=== PATIENT | female | born 1970 | race Caucasian/White ===

== ENCOUNTER 2019-01-30 00:42 | Emergency (ER) | payer OTHER ==
[~2019-01-30] VITALS: Ht 167.6 cm; Wt 80.2 kg
--- NOTE | 2019-01-30 00:44 | ED.ADGEN ---
Adult General Chief Complaint Chief Complaint ".. I was cleaning the barn yesterday.... I have horses.. , Bibi and Marco.. but I stuck my finger on dirty wire.. .. and I can't remember my last tetanus..." HPI HPI Patient is a 48 year old female who presents with above hx and complaints puncture wound to Rt. index finger. Patient states injury occurred when she was cleaning out the feed bowl for her horse. Bowl is made out of recycle tire. Patient is not remember her last tetanus. No recent travel. No specific ill time contacts. No history immunosuppression. No obvious significant injury to that finger currently. Has good range of motion. Distal neurovascular intact. Patient is right-hand dominant. Finger was cleaned after the injury. She normally follows at [place]. Review of Systems Review of Systems Constitutional: Denies fever or chills [] Eyes: Denies change in visual acuity, redness, or eye pain [] HENT: Denies nasal congestion or sore throat [] Respiratory: Denies cough or shortness of breath [] Cardiovascular: No additional information not addressed in HPI [] GI: Denies abdominal pain, nausea, vomiting, bloody stools or diarrhea [] : Denies dysuria or hematuria [] Musculoskeletal: Denies back pain or joint pain [] Integument: Denies rash or skin lesions []complains of puncture wound to right index finger Neurologic: Denies headache, focal weakness or sensory changes [] Endocrine: Denies polyuria or polydipsia [] All other systems were reviewed and found to be within normal limits, except as documented in this note. Family History Family History Noncontributory Current Medications Current Medications Current Medications Medications (Trade) Dose Ordered Sig/Favian Start Time Stop Time Status Last Admin Dose Admin Diphtheria/ Tetanus/Acell Pertussis (Boostrix) 0.5 ml ONCE ONCE 01/30/19 01:30 01/30/19 01:31 DC 01/30/19 01:18 0.5 ML Tetanus/ Diphtheria Toxoids Adsorbed (Tenivac Vial) 0.5 ml ONCE ONCE 01/30/19 01:00 01/30/19 01:10 DC Allergies Allergies Allergies Coded Allergies Type Severity Reaction Last Updated Verified Sulfa (Sulfonamide Antibiotics) Adverse Reaction Intermediate 01/30/19 Yes Physical Exam Physical Exam Constitutional: Well developed, well nourished, no acute distress, non-toxic appearance. [] HENT: Normocephalic, atraumatic, bilateral external ears normal, oropharynx moist, no oral exudates, nose normal. [] Eyes: PERRLA, EOMI, conjunctiva normal, no discharge. [] Neck: Normal range of motion, no tenderness, supple, no stridor. [] Cardiovascular:Heart rate regular rhythm, no murmur [] Lungs & Thorax: Bilateral breath sounds clear to auscultation [] Abdomen: Bowel sounds normal, soft, no tenderness, no masses, no pulsatile masses. [] Skin: Warm, dry, no erythema, no rash. [] Multiple insight bites on her arms. Right index finger puncture wound Back: No tenderness, no CVA tenderness. [] Extremities: No tenderness, no cyanosis, no clubbing, ROM intact, no edema. [] Neurologic: Alert and oriented X 3, normal motor function, normal sensory function, no focal deficits noted. [] Psychologic: Affect normal, judgement normal, mood normal. [] Current Patient Data Vital Signs Vital Signs Date Time Temp Pulse Resp B/P (MAP) Pulse Ox O2 Delivery O2 Flow Rate FiO2 01/30/19 01:06 97.7 73 20 145/88 (107) 99 Room Air EKG EKG [] Radiology/Procedures Radiology/Procedures [] Course & Med Decision Making Course & Med Decision Making Pertinent Labs and Imaging studies reviewed. (See chart for details) Monitor for infection. Follow-up at [place]. Return if any concerns. [] Final Impression Final Impression 1. Puncture wound Rt index[] Dragon Disclaimer Dragon Disclaimer This electronic medical record was generated, in whole or in part, using a voice recognition dictation system. Discharge Summary Visit Information Final Diagnosis Problems Medical Problems: (1) Puncture wound Status: Acute Brief Hospital Course Allergies Allergies Coded Allergies Type Severity Reaction Last Updated Verified Sulfa (Sulfonamide Antibiotics) Adverse Reaction Intermediate 01/30/19 Yes Vital Signs Vital Signs Date Time Temp Pulse Resp B/P (MAP) Pulse Ox O2 Delivery O2 Flow Rate FiO2 01/30/19 01:06 97.7 73 20 145/88 (107) 99 Room Air Brief Hospital Course Ms. Garcia is a 48 old female who presented with puncture wound Rt. index finger. Discharge Information Condition at Discharge: Stable Disposition/Orders: D/C to Home Dischare Medications Current Medications Tetanus/ Diphtheria Toxoids Adsorbed (Tenivac Vial) 0.5 ml ONCE ONCE VAX IM ; Start 01/30/19 at 01:00; Stop 01/30/19 at 01:10; Status DC Diphtheria/ Tetanus/Acell Pertussis (Boostrix) 0.5 ml ONCE ONCE VAX IM Last administered on 01/30/19at 01:18; Admin Dose 0.5 ML; Start 01/30/19 at 01:30; Stop 01/30/19 at 01:31; Status DC Active Scripts Active Reported Nortriptyline Hcl 10 Mg Capsule 10 Mg PO QHS Dragon Disclaimer This chart was dictated in whole or in part using Voice Recognition software in a busy, high-work load, and often noisy Emergency Department environment. It may contain unintended and wholly unrecognized errors or omissions. MARINA PINON MD Jan 30, 2019 00:44
[2019-01-30] MEDS ORDERED: TETANUS AND DIPHTHERIA TOX/PF 0.5 ML VIAL. VAX IM ONE (01:00)
[2019-01-30 01:06] VITALS: BP 145/88
[2019-01-30] MEDS ORDERED: NORT10CA PO (01:06)
[2019-01-30] MEDS ORDERED: DIPHTH,PERTUSS(ACELL),TET TOX 0.5 ML DISP.SYRIN. VAX IM ONE (01:30)
== END 2019-01-30 01:25 | disposition home or self-care (01) ==
LOC: ER 00:42
DX: S61.230A Puncture wound without foreign body of right index finger without damage to nail, initial encounter (principal); Z88.2 Allergy status to sulfonamides; W26.8XXA Contact with other sharp object(s), not elsewhere classified, initial encounter; Y93.89 Activity, other specified; Y92.89 Other specified places as the place of occurrence of the external cause; Y99.8 Other external cause status
CPT/HCPCS: 90471; 90715; 99283